=== PATIENT | female | born 1950 | race Hispanic/Latino ===

== ENCOUNTER 2018-05-15 08:39 | Day surgery (SDC) | payer MEDICARE ==
[~2018-05-15 08:39] MED LIST: Lactated Ringer's 500 ML IV ONE
[2018-05-15 08:58] VITALS: BMI 28.8
[2018-05-15] MEDS ORDERED: Propofol 10 mg/ml Inj (20 ML) ONE (09:54)
[2018-05-15 10:46] VITALS: BP 137/91; PULSE 81; RESP 16; TEMP 98; O2SAT 100
== END 2018-05-15 12:16 | disposition home or self-care (01) ==
LOC: H.ENDO 08:39 → MERGE 09:30 → H.ENDO 12:16
PROVIDERS: ATTEND Internal Medicine Gastroenterology
DX: Z12.11 Encounter for screening for malignant neoplasm of colon (principal); K64.8 Other hemorrhoids; D12.5 Benign neoplasm of sigmoid colon; K57.30 Diverticulosis of large intestine without perforation or abscess without bleeding
CPT/HCPCS: 45380; 88305; J2001; J2704; J7120